=== PATIENT | female | born 1990 | race Caucasian/White ===

== ENCOUNTER 2018-12-29 17:47 | Emergency (ER) | payer SELFPAY ==
[~2018-12-29] VITALS: Ht 157.5 cm; Wt 59.0 kg
[2018-12-29] MEDS ORDERED: LIDOCAINE HCL/PF 1% 10 MG/ML 5ML VIAL IJ ONE (18:45)
[2018-12-29] MEDS ORDERED: HYDROCODONE/ACETAMINOPHEN 5/325MG TABLET PO ONE (18:45)
[2018-12-29] MEDS ORDERED: BACITRACIN ZINC OINT UDPKT TOP ONE (18:45)
[2018-12-29 19:43] VITALS: BP 114/68
== END 2018-12-29 19:44 | disposition home or self-care (01) ==
LOC: ER 17:47
DX: S91.201A Unspecified open wound of right great toe with damage to nail, initial encounter (principal); W22.8XXA Striking against or struck by other objects, initial encounter; Y93.01 Activity, walking, marching and hiking; Y92.89 Other specified places as the place of occurrence of the external cause
CPT/HCPCS: 11730; 99283; J3490